=== PATIENT | male | born 1965 | race Two or more races ===

== ENCOUNTER 2017-06-13 14:05 | Outpatient (CLI) | payer OTHER | END 2017-06-13 14:18 | disposition home or self-care (01) | LOC: LAB 14:05 | DX: I11.9 Hypertensive heart disease without heart failure (principal) ==

== ENCOUNTER 2019-12-09 08:31 | Outpatient (CLI) | payer OTHER | END 2019-12-09 08:37 | disposition home or self-care (01) | LOC: NUCLEAR 08:31 | PROVIDERS: ATTEND Internal Medicine | DX: I50.22 Chronic systolic (congestive) heart failure (principal) ==

== ENCOUNTER 2019-12-11 07:45 | Outpatient (CLI) | payer OTHER | END 2019-12-11 07:47 | disposition home or self-care (01) | LOC: SONOGRAMA 07:45 → MAMO-SONO 09:15 | PROVIDERS: ATTEND Internal Medicine | DX: K76.0 Fatty (change of) liver, not elsewhere classified (principal) ==

== ENCOUNTER 2020-04-14 09:03 | Outpatient (CLI) | payer OTHER | END 2020-04-14 10:00 | disposition home or self-care (01) | LOC: NUCLEAR 09:03 | PROVIDERS: ATTEND Internal Medicine | DX: I50.22 Chronic systolic (congestive) heart failure (principal) ==

== ENCOUNTER 2020-06-01 07:26 | Outpatient (CLI) | payer OTHER | END 2020-06-01 07:30 | disposition home or self-care (01) | LOC: LAB 07:26 | PROVIDERS: ATTEND Internal Medicine Nephrology | DX: D64.89 Other specified anemias (principal); R80.8 Other proteinuria; I10 Essential (primary) hypertension; E11.21 Type 2 diabetes mellitus with diabetic nephropathy; R10.84 Generalized abdominal pain; E78.49 Other hyperlipidemia ==

== ENCOUNTER 2020-06-10 10:57 | Outpatient (CLI) | payer OTHER | END 2020-06-10 11:03 | disposition home or self-care (01) | LOC: NUCLEAR 10:57 | PROVIDERS: ATTEND Internal Medicine | DX: I80.222 Phlebitis and thrombophlebitis of left popliteal vein (principal) | CPT/HCPCS: 78472; 78496; A9560 ==

== ENCOUNTER → 2020-10-12 07:03 | Outpatient (CLI) | payer OTHER | END | disposition home or self-care (01) | LOC: LAB 07:03 | PROVIDERS: ATTEND Internal Medicine | DX: E11.65 Type 2 diabetes mellitus with hyperglycemia (principal); E78.5 Hyperlipidemia, unspecified; I10 Essential (primary) hypertension ==

== ENCOUNTER 2020-12-13 07:57 | Outpatient (CLI) | payer OTHER | END 2020-12-13 07:58 | disposition home or self-care (01) | LOC: LAB 07:57 | PROVIDERS: ATTEND Internal Medicine | DX: I10 Essential (primary) hypertension (principal); E11.65 Type 2 diabetes mellitus with hyperglycemia ==

== ENCOUNTER → 2020-12-23 07:36 | Outpatient (CLI) | payer OTHER | END | disposition home or self-care (01) | LOC: LAB 07:36 | PROVIDERS: ATTEND Internal Medicine Nephrology | DX: N18.2 Chronic kidney disease, stage 2 (mild) (principal); I10 Essential (primary) hypertension; E11.22 Type 2 diabetes mellitus with diabetic chronic kidney disease ==

== ENCOUNTER → 2021-01-15 11:49 | Outpatient (CLI) | payer OTHER | END | disposition home or self-care (01) | LOC: LAB 11:49 | PROVIDERS: ATTEND Pediatrics Neonatal-Perinatal Medicine | DX: R05 Cough (principal); Z03.818 Encounter for observation for suspected exposure to other biological agents ruled out; R50.9 Fever, unspecified ==

== ENCOUNTER 2021-01-17 08:13 | Outpatient (CLI) | payer OTHER | END 2021-01-17 15:00 | disposition home or self-care (01) | LOC: LAB 08:13 | DX: Z03.818 Encounter for observation for suspected exposure to other biological agents ruled out (principal) ==

== ENCOUNTER 2021-01-17 11:00 | Outpatient (CLI) | payer OTHER | END 2021-01-17 12:00 | disposition home or self-care (01) | LOC: ASH CLINIC 11:00 | PROVIDERS: ATTEND General Practice | DX: Z23 Encounter for immunization (principal); U07.1 COVID-19 ==

== ENCOUNTER → 2021-04-20 | Outpatient (CLI) | payer OTHER | END | disposition home or self-care (01) | LOC: PPH VACUNA 09:00 | PROVIDERS: ATTEND Emergency Medicine Pediatric Emergency Medicine | DX: Z23 Encounter for immunization (principal) ==

== ENCOUNTER 2021-04-25 07:20 | Outpatient (CLI) | payer OTHER | END 2021-04-25 15:00 | disposition home or self-care (01) | LOC: LAB 07:20 | PROVIDERS: ATTEND Internal Medicine | DX: I10 Essential (primary) hypertension (principal); E78.5 Hyperlipidemia, unspecified; E11.65 Type 2 diabetes mellitus with hyperglycemia; E03.8 Other specified hypothyroidism ==